=== PATIENT | female | born 1960 | race African-American/Black ===

== ENCOUNTER 2019-07-17 09:02 | Inpatient (IN) | payer MEDICAID ==
[~2019-07-17] VITALS: Ht 177.8 cm; Wt 167.8 kg
[~2019-07-17 09:02] MED LIST: LISI-662 PO; LOVA20 PO; QUET200T PO; SERT100T12 PO; TRAZ-220 PO
[2019-07-17] MEDS ORDERED: CHOL100018 PO (09:08)
[2019-07-17] MEDS ORDERED: QUEtiapine FUMARATE 200 MG TABLET PO ONE (10:30)
[2019-07-17 10:34] LABS: BILIRUBIN,URINE NEGATIVE (NEGATIVE); GLUCOSE, URINE (UA) NEGATIVE (NEGATIVE); KETONES,URINE TRACE mg/dL (NEGATIVE); LEUKOCYTE ESTERASE ,URINE NEGATIVE (NEGATIVE); NITRATE,URINE NEGATIVE (NEGATIVE); OCCULT BLOOD,URINE NEGATIVE (NEGATIVE); PH,URINE 5.5 (5.0-8.0); PROTEIN,URINE NEGATIVE (NEGATIVE); UROBILINOGEN,URINE 0.2 mg/dL (<=1.0)
[2019-07-17 10:35] LABS: APPEARANCE,URINE CLEAR (CLEAR)
[2019-07-17 10:58] LABS: AMPHET/METH SCREEN,URINE NEGATIVE (NEGATIVE); BARBITURATE SCREEN, URINE NEGATIVE (NEGATIVE); BENZODIAZEPINES SCREEN,URINE NEGATIVE (NEGATIVE); CANNABINOID SCREEN,URINE NEGATIVE (NEGATIVE); COCAINE SCREEN,URINE NEGATIVE (NEGATIVE); METHADONE SCREEN, URINE NEGATIVE (NEGATIVE)
[2019-07-17 11:00] LABS: EOSINOPHILS % (AUTO) 1.1 % (1.0-6.0); HEMATOCRIT 40.3 % (36-46); LYMPHOCYTES # (AUTO) 1.3 K/uL (1.0-4.8); LYMPHOCYTES % (AUTO) 21.5 % (22.0-44.0); MEAN CORPUSCULAR HEMOGLOBIN 27.5 pg (26.0-34.0); MEAN CORPUSCULAR HGB CONC 32.3 G/dL (31.0-37.0); MEAN CORPUSCULAR VOLUME 85 fL (80-100); MONOCYTES # (AUTO) 0.5 K/uL (0.1-1.0); MONOCYTES % (AUTO) 7.6 % (2.0-9.0); NEUTROPHILS # (AUTO) 4.3 K/uL (1.8-7.7); NEUTROPHILS % (AUTO) 68.8 % (40.0-70.0); PLATELET COUNT (AUTO) 226 K/uL (150-450); RED BLOOD CELL COUNT(AUTO) 4.72 MIL/uL (4.00-5.20); RED CELL DISTRIBUTION WIDTH 14.6 % (11.5-14.5)
[2019-07-17] MEDS ORDERED: HALOPERIDOL 5 MG TABLET PO PRN (11:00)
[2019-07-17] MEDS ORDERED: ZOLPIDEM TARTRATE 10 MG TABLET PO PRN (11:00)
[2019-07-17 11:09] LABS: ANION GAP 9 mmol/L (8-16); CALCIUM, TOTAL 8.8 mg/dL (8.8-10.5); CARBON DIOXIDE 26 mmol/L (22-29); CHLORIDE 105 mmol/L (98-107); CREATININE 1.48 mg/dL (0.60-1.30); GLOMERULAR FILTR. RATE CALC 44 mL/min (>60); GLUCOSE,RANDOM 81 mg/dL (70-110); POTASSIUM 4.3 mmol/L (3.5-5.1); SODIUM SERUM 140 mmol/L (136-145); UREA NITROGEN, BLOOD 10 mg/dL (7-18)
[2019-07-17 11:14] LABS: OPIATE SCREEN,URINE NEGATIVE (NEGATIVE)
[2019-07-17 11:15] LABS: ALANINE AMINOTRANSFERASE 16 U/L (12-78); ALBUMIN 3.4 g/dL (3.4-5.0); ALKALINE PHOSPHATASE 59 U/L (46-116); ASPARTATE AMINOTRANSFERASE 21 U/L (15-37); BILIRUBIN,TOTAL 0.6 mg/dL (0.1-1.0)
[2019-07-17] MEDS ORDERED: ACETAMINOPHEN 325 MG TABLET PO ONE (11:15)
[2019-07-17 11:19] LABS: PHENCYCLIDINE SCREEN,URINE NEGATIVE (NEGATIVE)
[2019-07-17 18:46] VITALS: BP 158/89
[2019-07-17] MEDS: QUEtiapine FUMARATE 200 MG ER TABLET PO SCH ×2 (20:29→21:00)
[2019-07-17] MEDS: LORazepam 2 MG TABLET PO PRN (20:56)
[2019-07-18] MEDS ORDERED: LOPERAMIDE HCL 2 MG CAPSULE PO PRN (05:00)
[2019-07-18] MEDS ORDERED: ALBUTEROL SULFATE HFA 90 MCG/PUFF 8 GM INHALER IH PRN (05:00)
[2019-07-18] MEDS ORDERED: MAGNESIUM HYDROXIDE SUSPENSION 30 ML UDCUP PO PRN (05:00)
[2019-07-18] MEDS ORDERED: IBUPROFEN 600 MG TABLET PO PRN (05:00)
[2019-07-18] MEDS ORDERED: BENZOCAINE/MENTHOL LOZENGE MM PRN (05:00)
[2019-07-18] MEDS ORDERED: PETROLATUM,WHITE 28 GM JELLY TP PRN (05:00)
[2019-07-18] MEDS ORDERED: CloNIDine HCL 0.1 MG TABLET PO PRN (05:00)
[2019-07-18] MEDS ORDERED: ONDANSETRON HCL 4 MG TABLET PO PRN (05:00)
[2019-07-18] MEDS ORDERED: BACITRACIN 28.4 GM OINTMENT TP PRN (05:00)
[2019-07-18] MEDS ORDERED: MAG HYDROX/AL HYDROX/SIMETH ES 30 ML SUSPENSION UDCUP PO PRN (05:00)
[2019-07-18] MEDS ORDERED: ACETAMINOPHEN 325 MG TABLET PO PRN (05:00)
[2019-07-18 07:45] LABS: CHOL/HDL RATIO 3.8 (3.9-5.7)
[2019-07-18 08:55] VITALS: BP 149/96
[2019-07-18] MEDS: DOCUSATE SODIUM 100 MG CAPSULE PO SCH (10:04)
[2019-07-18] MEDS: LISINOPRIL 20 MG TABLET PO SCH (10:05)
[2019-07-18] MEDS: SERTRALINE HCL 100 MG TABLET PO SCH (10:05)
[2019-07-18] MEDS: CHOLECALCIFEROL (VIT D3) 1,000 UNITS TABLET PO SCH (10:05)
[2019-07-18] MEDS: OMEPRAZOLE 20 MG CAPSULE PO SCH (10:05)
[2019-07-18] MEDS: ZIPRASIDONE HCL 40 MG CAPSULE PO SCH (17:06)
[2019-07-18 17:30] VITALS: BP 123/70
[2019-07-18] MEDS ORDERED: ERGO500054 PO (19:04)
[2019-07-18] MEDS: BENZOCAINE 10% 7 GM GEL TP SCH (19:32)
[2019-07-18] MEDS: LOVASTATIN 20 MG TABLET PO SCH (20:21)
[2019-07-18] MEDS: CHLORHEXIDINE GLUCONATE 0.12% 15 ML UDCUP ORAL RINSE PO SCH (20:21)
[2019-07-19] MEDS: BENZOCAINE 10% 7 GM GEL TP SCH ×6 (00:07→19:04)
[2019-07-19] MEDS: ZIPRASIDONE HCL 40 MG CAPSULE PO SCH ×2 (06:52→16:41)
[2019-07-19] MEDS: CHOLECALCIFEROL (VIT D3) 1,000 UNITS TABLET PO SCH (09:31)
[2019-07-19] MEDS: LISINOPRIL 20 MG TABLET PO SCH (09:31)
[2019-07-19] MEDS: OMEPRAZOLE 20 MG CAPSULE PO SCH (09:31)
[2019-07-19] MEDS: DOCUSATE SODIUM 100 MG CAPSULE PO SCH (09:31)
[2019-07-19] MEDS: SERTRALINE HCL 100 MG TABLET PO SCH (09:32)
[2019-07-19] MEDS: CHLORHEXIDINE GLUCONATE 0.12% 15 ML UDCUP ORAL RINSE PO SCH ×4 (09:32→20:33)
[2019-07-19 09:40] VITALS: BP 120/77
[2019-07-19 18:30] VITALS: BP 134/84
[2019-07-19] MEDS: LOVASTATIN 20 MG TABLET PO SCH (20:33)
[2019-07-20] MEDS: BENZOCAINE 10% 7 GM GEL TP SCH ×7 (00:15→23:45)
[2019-07-20 02:35] VITALS: BP 144/74
[2019-07-20] MEDS: ZIPRASIDONE HCL 40 MG CAPSULE PO SCH ×2 (07:30→17:14)
[2019-07-20] MEDS: SERTRALINE HCL 100 MG TABLET PO SCH (08:25)
[2019-07-20] MEDS: OMEPRAZOLE 20 MG CAPSULE PO SCH (08:25)
[2019-07-20] MEDS: DOCUSATE SODIUM 100 MG CAPSULE PO SCH (08:25)
[2019-07-20] MEDS: CHOLECALCIFEROL (VIT D3) 1,000 UNITS TABLET PO SCH (08:25)
[2019-07-20] MEDS: CHLORHEXIDINE GLUCONATE 0.12% 15 ML UDCUP ORAL RINSE PO SCH ×4 (08:26→20:01)
[2019-07-20] MEDS: LISINOPRIL 20 MG TABLET PO SCH (08:27)
[2019-07-20 08:44] VITALS: BP 150/88
[2019-07-20 17:49] VITALS: BP 145/82
[2019-07-20] MEDS: LOVASTATIN 20 MG TABLET PO SCH (20:01)
[2019-07-21] MEDS: LORazepam 2 MG TABLET PO PRN (00:46)
[2019-07-21 02:07] VITALS: BP 162/85
[2019-07-21] MEDS: BENZOCAINE 10% 7 GM GEL TP SCH ×3 (04:00→11:53)
[2019-07-21] MEDS: ZIPRASIDONE HCL 40 MG CAPSULE PO SCH (06:37)
[2019-07-21] MEDS: DOCUSATE SODIUM 100 MG CAPSULE PO SCH (08:57)
[2019-07-21] MEDS: SERTRALINE HCL 100 MG TABLET PO SCH (08:57)
[2019-07-21] MEDS: LISINOPRIL 20 MG TABLET PO SCH (08:57)
[2019-07-21] MEDS: CHOLECALCIFEROL (VIT D3) 1,000 UNITS TABLET PO SCH (08:58)
[2019-07-21] MEDS: OMEPRAZOLE 20 MG CAPSULE PO SCH (08:58)
[2019-07-21] MEDS: CHLORHEXIDINE GLUCONATE 0.12% 15 ML UDCUP ORAL RINSE PO SCH ×2 (08:58→11:53)
[2019-07-21] MEDS ORDERED: AmLODIPine BESYLATE 10 MG TABLET PO SCH (09:00)
[2019-07-21 10:03] VITALS: BP 147/103
[2019-07-21] MEDS ORDERED: ZIPR40CA2 PO (12:38)
[2019-07-21] MEDS ORDERED: DOCU-275 PO (14:34)
[2019-07-21] MEDS ORDERED: AMLO10TA7 PO (14:34)
[2019-07-21] MEDS ORDERED: OMEP20 PO (14:36)
[2019-07-21] MEDS ORDERED: CHOL100018 PO (14:37)
== END 2019-07-21 15:09 | disposition home or self-care (01) | DRG 885 ==
LOC: EMS 09:05 → 3EI 15:49
PROVIDERS: ADMIT Psychiatry & Neurology Psychiatry; ATTEND Psychiatry & Neurology Psychiatry
DX: F25.1 Schizoaffective disorder, depressive type (principal); F10.231 Alcohol dependence with withdrawal delirium; Z68.43 Body mass index [BMI] 50.0-59.9, adult; R45.851 Suicidal ideations; E55.9 Vitamin D deficiency, unspecified; E66.01 Morbid (severe) obesity due to excess calories; Z88.0 Allergy status to penicillin; E78.00 Pure hypercholesterolemia, unspecified; E78.5 Hyperlipidemia, unspecified; Y90.9 Presence of alcohol in blood, level not specified; F12.90 Cannabis use, unspecified, uncomplicated; F17.200 Nicotine dependence, unspecified, uncomplicated; F41.9 Anxiety disorder, unspecified; I10 Essential (primary) hypertension; K59.00 Constipation, unspecified; M19.90 Unspecified osteoarthritis, unspecified site; Z91.5 Personal history of self-harm
CPT/HCPCS: G0480

== ENCOUNTER 2021-03-21 10:17 | Emergency (ER) | payer MEDICAID ==
[~2021-03-21] VITALS: Ht 177.8 cm; Wt 131.8 kg
[~2021-03-21 10:17] MED LIST changes: +AMLO-258 PO; +CHOL-35 PO; +DOCU-270 PO; -LISI-662 PO; +LISI-894 PO; -LOVA20 PO; +LOVA20TA73 PO; +OMEP20 PO; -QUET200T PO; +SERT-162 PO; -SERT100T12 PO; -TRAZ-220 PO; +ZIPR40CA2 PO
[2021-03-21 10:20] VITALS: BP 0/0
[2021-03-21 16:36] LABS: COVID AG,FIA SOURCE NASOPHARYNGEAL
[2021-03-21] MEDS ORDERED: EPINEPHrine 1:10,000 [1 MG/10 ML] SYRINGE ONE (17:38)
[2021-03-21] MEDS ORDERED: SODIUM BICARBONATE [ADULT] 8.4% 50 MEQ/50 ML SYRINGE IVP ONE (17:38)
== END 2021-03-21 10:40 ==
LOC: EMS 10:25
DX: I46.9 Cardiac arrest, cause unspecified (principal); F20.9 Schizophrenia, unspecified; E78.00 Pure hypercholesterolemia, unspecified; I10 Essential (primary) hypertension; Z20.822 Contact with and (suspected) exposure to COVID-19; Z88.0 Allergy status to penicillin; Z79.899 Other long term (current) drug therapy
CPT/HCPCS: 31500; 82962; 92950; 99291; J0171; J3490